=== PATIENT | female | born 1975 | race Caucasian/White ===

== ENCOUNTER → 2025-07-01 | Outpatient (CLI) | payer BC, SELFPAY ==
--- NOTE | 2025-07-01 09:51 | XR_ITS ---
EXAMINATION: Ankle, left 3 views . Technique: Ankle AP, oblique, lateral 3 views Date and time of exam: July 01, 2025, 10:36 AM INDICATIONS: Injury to the ankle one month ago, ankle pain. FINDINGS: No fracture or dislocation. Mild narrowing tibiotalar joint. IMPRESSION: No fracture or dislocation.
--- NOTE | 2025-07-01 09:51 | XR_ITS ---
Examination: Foot, left, 3 views Technique: AP, oblique, lateral views foot, 3 views Date and time of exam: July 01, 2025, 10:33 AM INDICATIONS: Injured foot one month ago, foot pain. FINDINGS: Moderate osteopenia. No acute fracture. No dislocation. IMPRESSION: No acute fracture.
== END | disposition home or self-care (01) ==
LOC: CDIM 09:45
PROVIDERS: PCP Nurse Practitioner Family; Referring Provider Physician Assistant; Visit Provider Physician Assistant
DX: S93.402A Sprain of unspecified ligament of left ankle, initial encounter (principal); S99.922A Unspecified injury of left foot, initial encounter; X58.XXXA Exposure to other specified factors, initial encounter
CPT/HCPCS: 73610; 73630